=== PATIENT | male | born 1990 | race African-American/Black ===

== ENCOUNTER 2017-02-07 14:59 | Emergency (ER) | payer MEDICAID, OTHER ==
[~2017-02-07] VITALS: Ht 182.9 cm; Wt 70.0 kg
[2017-02-07 18:23] VITALS: BP 111/56
[2017-02-07] MEDS ORDERED: LIDOCAINE HCL BUFFERED 1% W/EPI 1:100,000 20 ML VIAL INJ ONE (18:45)
[2017-02-07] MEDS ORDERED: IBUPROFEN 600 MG TABLET PO ONE (19:00)
== END 2017-02-07 19:09 | disposition home or self-care (01) ==
LOC: EMS 15:00
DX: L02.415 Cutaneous abscess of right lower limb (principal); J45.909 Unspecified asthma, uncomplicated
CPT/HCPCS: 10060; 99283; J3490

== ENCOUNTER 2017-02-09 13:48 | Emergency (ER) | payer OTHER ==
[~2017-02-09] VITALS: Ht 195.6 cm; Wt 74.5 kg
[2017-02-09 14:56] VITALS: BP 92/52
== END 2017-02-09 18:02 | disposition home or self-care (01) ==
LOC: EMS 13:49
DX: Z48.00 Encounter for change or removal of nonsurgical wound dressing (principal); Z88.0 Allergy status to penicillin
CPT/HCPCS: 99283